=== PATIENT | male | born 1960 | race Caucasian/White ===

== ENCOUNTER 2024-11-28 19:55 | Emergency (ER) | payer OTHER ==
--- OUTSIDE RECORDS SUMMARY | 2024-11-28 19:59 | XMS REPORT | Continuity of Care Document ---
Author Name Unknown Address [address] [facility] [place] [address] [place] [address] [facility] Address [address] [facility] [place] [address] [place] [address] Care Team Providers Care Administrative Services Director Name Role Phone Cait Ramey, [facility] Primary Care Physician [phone] Campaigns, Generic Provider Attending Clinician Unavailable YU ALCAZAR Attending Clinician Unavailab ANA Dunlap Attending Clinician Unavailable ANA TOVAR Attending Clinician Unavailable Ana Tovar DO Attending Clinician [phone] Castillo WOOD Attending Clinician Unavailable Castillo Pantoja Attending Clinician [phone] YU ALCAZAR Admitting Clinician Unavailab Castillo Gann Admitting Clinician Unavailable Payers Payer Name Policy Type Policy Number Effective Date Expirati on Date Source Problems Condition Name Condition Details Condition Category Status Onset Date Resolution Date Last Treatment Date Treating Clinician Comments Source Tooth infection Tooth infection Disease Active 10-05 00:00: 00 [facility] Allergies, Adverse Reactions, Alerts Allergy Name Allergy Type Status Severity Reaction(s) Onset Date Inactive Date Treating Clinician Comments Source NO KNOWN ALLERGIE S Drug Class Active [facility] Social History Social Habit Start Date Stop Date Quantity Comments Source Sexual orientation U [facility] Exposure to SARS-CoV-2 (event) 2022-03-09 00:00:00 2022-03-19 17:40:00 Not sure [facility] Sex assigned at 1960 00:00:00 1960 00:00:00 [facility] Smoking Status Start Date Stop Date Source Tobacco smoking consumption unknown [facility] Medications Ordered Medication Name Filled Medication Name Start Date Stop Date Current Medication? Ordering Clinician Indication Dosage Frequency Signature (SIG) Comments Components Source ketorolac (TORADOL) injection 30 mg 10-10 20:15: 00 10-10 20:13 :00 No 30mg 30 mg, Slow IV Push, ONCE, 1 dose, On Thu10/10/24 at 1515, Routine [facility] diphenhydrA MINE (BENADRYL) injection 12.5 mg 10-10 19:30: 00 10-10 20:13 :00 No 12.5mg 12.5 mg, Slow IV Push, ONCE, 1 dose, On Thu10/10/24 at 1430, STAT [facility] metoclopram margi HCl (REGLAN) injection 10 mg 10-10 19:30: 00 10-10 20:12 :00 No 10mg 10 mg, Slow IV Push, ONCE, 1 dose, On Thu10/10/24 at 1430, DENNY [facility] magnesium oxide 400 mg magnesium Tab 10-10 00:00: 00 Yes [id number] 1{tbl} Take 1 tablet by mouth in the morning. [facility] Suboxone 8 mg-2 mg sublingual film 09-26 00:00: 00 Yes 1mg Kin Gallo Suboxone 4 mg-1 mg sublingual film 09-26 00:00: 00 Yes 1mg Kin Gallo meloxicam 15 mg tablet 08-15 00:00: 00 Yes 1mg Kin Gallo benztropine 1 mg tablet 08-15 00:00: 00 Yes 1mg Kin Gallo olanzapine 15 mg tablet 08-15 00:00: 00 Yes 1mg Kin Gallo amlodipine 5 mg tablet 08-04 00:00: 00 Yes 1mg Kin Gallo meloxicam 7.5 mg tablet 08-04 00:00: 00 Yes 1mg Kin Gallo lisinopril 10 mg tablet 08-04 00:00: 00 Yes 1mg Kin Gallo Flomax 0.4 mg capsule 08-04 00:00: 00 Yes 1mg Kin Gallo chlorphenir amine (CHLORTABS) 4 mg tablet 05-16 00:00: 00 Yes [id number] 4mg Take 1 tablet by mouth every 6 (six) hours as needed for Allergies. [facility] benzonatate 100 mg capsule 05-16 00:00: 00 Yes [id number] 100mg Take 1 capsule by mouth 3 (three) times daily as needed for Cough. [facility] methylPREDN ISolone (MEDROL, KARTHIK,) 4 mg tablets 05-16 00:00: 00 Yes [id number] Take by mouth SEE-INSTRU CTIONS. follow package directions [facility] Phenylephri ne-DM-Guaif enesin (TUSSIN CF COUGH-COLD) 5-10-100 mg/5 mL Liqd 05-16 00:00: 00 Yes [id number] 5mL Take 5 mL by mouth every 48 (forty-eig ht) hours. [facility] benztropine 1 mg tablet 2023-04 00:00: 00 Yes 1mg Kin Gallo olanzapine 15 mg tablet 2023-04 00:00: 00 Yes 1mg Kin Gallo amlodipine 5 mg tablet 2023-04 00:00: 00 Yes 1mg Kin Gallo meloxicam 7.5 mg tablet 2023-04 00:00: 00 Yes 1mg Kin Gallo lisinopril 10 mg tablet 2023-04 00:00: 00 Yes 1mg Kin Gallo Flomax 0.4 mg capsule 2023-04 00:00: 00 Yes 1mg Kin Gallo methocarbam oL (ROBAXIN) tablet 500 mg 2021-04 05:15: 00 03-20 04:18 :00 No 500mg 500 mg, Oral, ONCE, 1 dose, On Thu03/19/22 at 2315, Routine [facility] ibuprofen (IBU) tablet 600 mg 2021-04 04:15: 00 03-20 04:18 :00 No 600mg 600 mg, Oral, ONCE, 1 dose, On Thu03/19/22 at 2215, DENNY [facility] methocarbam oL 500 mg tablet 2021-04 00:00: 00 Yes [id number] 500mg Take 1 tablet by mouth 4 (four) times daily. [facility] naproxen (NAPROSYN) 500 mg tablet 2021-04 00:00: 00 Yes [id number] 500mg Take 1 tablet by mouth in the morning and 1 tablet in the evening. Take with meals. [facility] traMADOL (ULTRAM) 50 mg tablet 12-18 00:00: 00 Yes 50mg Take 1 Tab by mouth every 6 (six) hours as needed for Pain (scale 7-10). [facility] amoxicillin (TRIMOX) 500 mg capsule 12-18 00:00: 00 Yes 500mg Take 1 Cap by mouth 3 (three) times daily. [facility] Vital Signs Vital Name Observation Time Observation Value Comments S ource Systolic blood pressure 2024-10-10 21:00:00 150 mm[Hg] [facility] Diastolic blood pressure 2024-10-10 21:00:00 77 mm[Hg] [facility] Heart rate 2024-10-10 21:00:00 68 /min [facility] Respiratory rate 2024-10-10 21:00:00 19 /min [facility] Oxygen saturation in Arterial blood by Pulse oximetry 2024-10-10 21:00:00 99 /min [facility] Body temperature 2024-10-10 19:19:00 36.5 Cher [facility] Body height 2024-10-10 19:19:00 160 cm [facility] Body weight 2024-10-10 19:19:00 52.164 kg [facility] BMI 2024-10-10 19:19:00 20.37 kg/m2 [facility] Systolic blood pressure 2024-05-17 04:03:00 163 mm[Hg] [facility] Diastolic blood pressure 2024-05-17 04:03:00 89 mm[Hg] [facility] Heart rate 2024-05-17 04:03:00 109 /min [facility] Body temperature 2024-05-17 04:03:00 36.39 Cher [facility] Respiratory rate 2024-05-17 04:03:00 17 /min [facility] Body height 2024-05-17 04:03:00 160 cm [facility] Body weight 2024-05-17 04:03:00 58.06 kg [facility] BMI 2024-05-17 04:03:00 22.67 kg/m2 [facility] Oxygen saturation in Arterial blood by Pulse oximetry 2024-05-17 04:03:00 100 /min [facility] Systolic blood pressure 2022-03-20 04:17:55 132 mm[Hg] [facility] Diastolic blood pressure 2022-03-20 04:17:55 82 mm[Hg] [facility] Heart rate 2022-03-20 04:17:55 85 /min [facility] Respiratory rate 2022-03-20 04:17:55 16 /min [facility] Oxygen saturation in Arterial blood by Pulse oximetry 2022-03-20 04:17:55 99 /min [facility] Body temperature 2022-03-19 23:42:00 36.44 Cher [facility] Body height 2022-03-19 23:42:00 160 cm [facility] Body weight 2022-03-19 23:42:00 54.432 kg [facility] BMI 2022-03-19 23:42:00 21.26 kg/m2 [facility] BP Systolic 2024-09-26 16:54:00 152 mm[Hg] Step lizzy Gallo BP Diastolic 2024-09-26 16:54:00 83 mm[Hg] Phong sandy Gallo Weight Measured 2024-09-26 16:54:00 108.40 pounds Kin F Sabino Height Measured 2024-09-26 16:54:00 63.75 inches Kin F Sabino Body Temperature 2024-09-26 16:54:00 98.30 degrees Kin F Sabino Heart Rate 2024-09-26 16:54:00 79.00 /min Amee en F Sabino Respiratory Rate 2024-09-26 16:54:00 17.00 /min Kin F Sabino BP Systolic 2024-09-07 07:58:00 172 mm[Hg] Step hen F Sabino BP Diastolic 2024-09-07 07:58:00 107 mm[Hg] Phong phen F Sabino Weight Measured 2024-09-07 07:58:00 115.40 pounds Kin F Sabino Height Measured 2024-09-07 07:58:00 63.75 inches Kin F Sabino Body Temperature 2024-09-07 07:58:00 97.60 degrees Kin F Sabino Heart Rate 2024-09-07 07:58:00 93.00 /min Amee en F Sabino Respiratory Rate 2024-09-07 07:58:00 16.00 /min Kin F Sabino Respiratory Rate 2024-08-04 09:26:00 16.00 /min Kin F Sabino BP Systolic 2024-08-04 09:26:00 150 mm[Hg] Step hen F Sabino BP Diastolic 2024-08-04 09:26:00 88 mm[Hg] Phong phen F Sabino Weight Measured 2024-08-04 09:26:00 117.80 pounds Kin F Sabino Height Measured 2024-08-04 09:26:00 63.75 inches Kin F Sabino Body Temperature 2024-08-04 09:26:00 98.40 degrees Kin F Sabino Heart Rate 2024-08-04 09:26:00 79.00 /min Amee en F Sabion BP Systolic 2024-04-18 13:42:00 148 mm[Hg] Step hen F Sabino BP Diastolic 2024-04-18 13:42:00 92 mm[Hg] Phong phen F Sabino Weight Measured 2024-04-18 13:42:00 128.60 pounds Kin F Sabino Height Measured 2024-04-18 13:42:00 63.75 inches Kin F Sabino Body Temperature 2024-04-18 13:42:00 98.30 degrees Kin Gallo Heart Rate 2024-04-18 13:42:00 91.00 /min Amee Gallo Respiratory Rate 2024-04-18 13:42:00 17.00 /min Kin Gallo Procedures Procedure Date / Time Performed Performing Clinicia n Source LIPASE 2024-10-10 20:09:00 Yu Alcazar Un [facility] MAGNESIUM 2024-10-10 20:09:00 Yu Alcazar Un [facility] COMP. METABOLIC PANEL ([id number]) 2024-10-10 20:09:00 Yu Alcazar [facility] CBC WITH DIFF 2024-10-10 20:09:00 Yu Alcazar [facility] RAPID STREP SCREEN FOR GROUP A 2024-10-10 20:09:00 Yu Alcazar [facility] INFLUENZA A/B RSV COVID NAAT 2024-10-10 20:09:00 Yu Alcazar [facility] CT HEAD WO CONTRAST 2024-10-10 20:02:12 Trung Alcazar [facility] INFLUENZA A/B RSV COVID NAAT 2024-05-17 04:06:00 Ana Tovar [facility] XR LUMBAR SPINE 2 VW 2022-03-20 02:33:48 Castillo Wood [facility] XR SPINE THORACIC 2 VW 2022-03-20 02:33:48 Castillo Wood [facility] XR KNEE 3 VW LEFT 2022-03-20 02:33:48 Castillo Wood [facility] CT CERVICAL SPINE WO CONTRAST 2022-03-20 02:15:00 Castillo Wood [facility] CT HEAD WO CONTRAST 2022-03-20 02:15:00 Castillo Wood e [facility] CONSENT/REFUSAL FOR DIAGNOSIS AND TREATMENT 2022-03-19 23:36:31 Doctor Unassigned, [place] [facility] Encounters Start Date/Time End Date/Time Encounter Type Admission Type Attending Clinicians Care Facility Care Department Encounter ID Source 2024-10-19 00:00:00 2024-10-19 10:06:01 Letter (Out) Campaigns, Generic Provider Campaigns, Generic Provider [facility] 1..840.114 350.1.13.10 [id number] [id number] [facility] 2024-10-10 14:21:00 2024-10-10 16:19:00 Emergency X YU ALCAZAR [facility] ERT [id number] [facility] 2024-10-03 08:47:36 2024-10-03 08:47:36 Outpatient [facility] [id number] Kin Gallo 2024-09-07 07:54:19 2024-09-07 07:54:19 Outpatient [facility] [id number] Kin Gallo 2024-09-07 00:00:00 2024-09-07 00:00:00 Outpatient Visit SFA [id number] Kin Gallo 2024-08-04 09:17:30 2024-08-04 09:17:30 Outpatient [facility] [id number] Kin Gallo 2024-08-04 00:00:00 2024-08-04 00:00:00 Outpatient Visit SFA [id number] Kin Gallo 2024-05-16 22:07:00 2024-05-16 23:05:00 Emergency X ANA TOVAR PHILLIP [facility] ERT [id number] [facility] 2024-05-16 22:07:00 2024-05-16 23:05:00 Emergency Ana Tovar [facility] ..840.114 350.1.13.10 [id number] [id number] [facility] 2024-04-18 00:00:00 2024-04-18 00:00:00 Outpatient Visit [facility] [id number] Kin Gallo 2022-03-19 17:48:00 2022-03-19 22:34:00 Emergency X Castillo WOOD [facility] ERT [id number] [facility] 2022-03-19 17:48:00 2022-03-19 22:34:00 Emergency Castillo Wood Radha [facility] [id number] [id number] [id number] [id number] [facility] Results Test Description Test Time Test Comments Results Result Co mments Source [facility] (10555)2024-10-10 20:38:43* Test Item Value Reference Range Interpretation Comme nts NA (test code = 7758437671) 127 mmol/L 135-145 L K (test code = 4531136945) 3.5 mmol/L 3.5-5.0 CL (test code = 9873921647) 95 mmol/L 98-108 L CO2 TOTAL (test code = 7506846889) 27 mmol/L 23-31 AGAP (test code = 2163970798) 5 2-16 BUN (test code = 0076786473) 6 mg/dL 7-23 L GLUCOSE (test code = 6229973028) 91 mg/dL 70-110 CREATININE (test code = 2160-0) 0.72 mg/dL 0.60-1.25 TOTAL BILI (test code = 4166957679) 0.8 mg/dL 0.1-1.1 CALCIUM (test code = 4112497625) 8.3 mg/dL 8.6-10.6 L T PROTEIN (test code = 5693054351) 6.4 g/dL 6.3-8.2 ALBUMIN (test code = 5921415134) 3.8 g/dL 3.5-5.0 ALK PHOS (test code = 9455201675) 60 U/L 34-122 ALTv (test code = 1742-6) 36 U/L 5-50 AST(SGOT) (test code = 5802369124) 51 U/L 13-40 H eGFR (test code = 43026-3) 103.3 mL/min/1.73m2 CKD-EPI eGFR (2020). Assuming creatinine has been stable day-to-day for at least three months, the eGFR indicates Category G1 (>= 90 mL/min/1.73 m2) Lab Interpretation (test code = 83480-4) [facility]normal [facility] 20:38:17* Test Item Value Reference Range Interpretation Comme nts LIPASE (test code = 6228044451) 19 U/L 0-220 Lab Interpretation (test cod e = 33085-5) Normal [facility] [id number] 20:27:51* Test Item Value Reference Range Interpretation Comme nts WBC (test code = 6690-2) 7.04 4.20-10.70 RBC (test code = 789-8) 3.91 4.26-5.52 L HGB (test code = 718-7) 12.9 g/dL 12.2-16.4 HCT (test code = 4544-3) 36.6 % 38.4-49.3 L MCV (test code = 787-2) 93.6 fL 81.7-95.6 MCH (test code = 785-6) 33 pg 26.1-32.7 H MCHC (test code = 786-4) 35.2 g/dL 31.2-35.0 H RDW-SD (test code = 82810-0) 43.3 fL 38.5-51.6 RDW-CV (test code = 788-0) 12.5 % 12.1-15.4 PLT (test code = 777-3) 354 150-328 H MPV (test code = 05761-8) 8.8 fL 9.8-13.0 L NRBC/100 WBC (test code = 3379537019) 0 0.0-10.0 NRBC x10^3 (test code = 3753213115) See_Comment [Automated messa ge] The system which generated this result transmitted reference range: 10*3/?L. The reference range was not used to interpret this result as normal/abnormal. GRAN MAT (NEUT) % (test code = 770-8) 71.3 % IMM GRAN % (test code = 1659713088) 0.3 % LYMPH % (test code = 736-9) 21.9 % MONO % (test code = 5905-5) 4.7 % EOS % (test code = 713-8) 1.4 % BASO % (test code = 706-2) 0.4 % GRAN MAT x10^3(ANC) (test code = 1231856431) 5.02 10*3/uL 1.99-6.95 IMM GRAN x10^3 (test code = 7859601076) 0.00-0.06 LYMPH x10^3 (test code = 731-0) 1.54 10*3/uL 1.09-3.23 MONO x10^3 (test code = 742-7) 0.33 10*3/uL 0.36-1.02 L EOS x10^3 (test code = 711-2) 0.1 10*3/uL 0.06-0.53 BASO x10^3 (test code = 704-7) 0.03 10*3/uL 0.01-0.09 Lab Interpretation (test code = 81514-7) [facility]normal [facility] wo [id number] 20:12:00EXAM: CT HEAD WO CONTRAST HISTORY: 64 years-old Male; Provided indication: Headache, sudden, severe. TECHNIQUE: Axial CT of the head was performed and reconstructed at 5 mmintervals. Coronal and sagittal reformatted images were generated. COMPARISON: 03/19/2022 FINDINGS: The ventricles and cerebral sulci are normal in caliber and configuration.No midline shift or pathological extra-axial fluid co llection is present.The basal cisterns are unremarkable. No acute intracranial hemorrhage or significant mass effect is visualized.No parenchymal attenuation abnormality is seen. The sierra-white matterdifferentiation is preserved. The calvarium and central skull base are unremarkable. The mastoid aircells and visualized paranasal air sinuses are clear.[facility] COMPREHENSIVE METABOLIC [id number] 00:00:00* Test Item Value Reference Range Interpretation Comme nts GLUCOSE (test code = 2345-7) 76 mg/dL UREA NITROGEN (BUN) (test code = 3094-0) 16 mg/dL CREATININE (test code = 2160-0) 1.17 mg/dL EGFR (test code = 01905-7) 70 mL/min/1.73m2 BUN/CREATININE RATIO (test code = 3097-3) SEE NOTE: (calc) SODIUM (test code = 2951-2) 141 mmol/L POTASSIUM (test code = 2823-3) 4.1 mmol/L CHLORIDE (test code = 2075-0) 104 mmol/L CARBON DIOXIDE (test code = 2027-9) 26 mmol/L CALCIUM (test code = 71583-8) 9.9 mg/dL PROTEIN, TOTAL (test code = 2885-2) 7.2 g/dL ALBUMIN (test code = 1751-7) 4.4 g/dL GLOBULIN (test code = 98121-3) 2.8 g/dL(calc) ALBUMIN/GLOBULIN RATIO (test code = 1759-0) 1.6 (calc) BILIRUBIN, TOTAL (test code = 1975-2) 0.5 mg/dL ALKALINE PHOSPHATASE (test code = 6768-6) 63 U/L AST (test code = 1920-8) 26 U/L ALT (test code = 1742-6) 25 U/L Kin GalloHEMOGLOBIN [id number] 00:00:00* Test Item Value Reference Range Interpretation Comme nts HEMOGLOBIN A1c (test code = 4548-4) 5.2 % Kin GalloLIPID [id number] 00:00:00* Test Item Value Reference Range Interpretation Comme nts CHOLESTEROL, TOTAL (test cod e = 2093-3) 131 mg/dL HDL CHOLESTEROL (test code = 2085-9) 44 mg/dL TRIGLYCERIDES (test code = 2571-8) 144 mg/dL LDL-CHOLESTEROL (test code = 01207-6) 64 mg/dL(calc) CHOL/HDLC RATIO (test code = 9830-1) 3.0 (calc) NON HDL CHOLESTEROL (test co de = 42992-5) 87 mg/dL(calc) Kin GalloPSA, [id number] 00:00:00* Test Item Value Reference Range Interpretation Comme nts PSA, TOTAL (test code = 2857-1) 1.39 ng/mL Kin GalloCHLAMYDIA/N. GONORRHOEAE RNA, [id number] 00:00:00* Test Item Value Reference Range Interpretation Comme nts CHLAMYDIA TRACHOMATIS RNA, T MA, UROGENITAL (test code = 64013-9) NOT DETECTED NEISSERIA GONORRHOEAE RNA, T MA, UROGENITAL (test code = 76126-8) NOT DETECTED Kin GalloHEPATITIS PANEL, [id number] 00:00:00* Test Item Value Reference Range Interpretation Comme nts HEPATITIS A AB, TOTAL (test code = 66837-2) REACTIVE HEPATITIS B SURFACE ANTIBODY QL (test code = 52045-2) REACTIVE HEPATITIS B SURFACE ANTIGEN (test code = 5196-1) NON-REACTIVE CONFIRMATION (test code = 7905-3) DNR HEPATITIS B CORE AB TOTAL (t est code = 86216-9) NON-REACTIVE HEPATITIS C ANTIBODY (test c ode = 61512-9) REACTIVE Kin GalloHIV 1/2 ANTIGEN/ANTIBODY,FOURTH GENERATION [id number] 00:00:00* Test Item Value Reference Range Interpretation Comme debra HIV AG/AB, 4TH GEN (test cod e = 67152-7) NON-REACTIVE Kin Villanueva AustinRPR (MONITOR) W/REFL [id number] 00:00:00* Test Item Value Reference Range Interpretation Comme nts RPR (MONITOR) W/REFL TITER ( test code = 21625-8) NON-REACTIVE Kin GalloHCV RNA, QUANTITATIVE REAL TIME PCR [ADDED]2024-08-09 00:00:00* Test Item Value Reference Range Interpretation Comme debra HCV RNA, QUANTITATIVE REAL T GIGI PCR (test code = 06445-4) 397623 IU/mL HCV RNA, QUANTITATIVE REAL T GIGI PCR (test code = 47359-5) 5.70 LogIU/mL Kin GalloCOMPREHENSIVE METABOLIC [id number] 00:00:00* Test Item Value Reference Range Interpretation Comme nts GLUCOSE (test code = 2345-7) 76 mg/dL UREA NITROGEN (BUN) (test code = 3094-0) 16 mg/dL CREATININE (test code = 2160-0) 1.17 mg/dL EGFR (test code = 33796-7) 70 mL/min/1.73m2 BUN/CREATININE RATIO (test code = 3097-3) SEE NOTE: (calc) SODIUM (test code = 2951-2) 141 mmol/L POTASSIUM (test code = 2823-3) 4.1 mmol/L CHLORIDE (test code = 2075-0) 104 mmol/L CARBON DIOXIDE (test code = 2027-9) 26 mmol/L CALCIUM (test code = 10212-4) 9.9 mg/dL PROTEIN, TOTAL (test code = 2885-2) 7.2 g/dL ALBUMIN (test code = 1751-7) 4.4 g/dL GLOBULIN (test code = 11655-4) 2.8 g/dL(calc) ALBUMIN/GLOBULIN RATIO (test code = 1759-0) 1.6 (calc) BILIRUBIN, TOTAL (test code = 1975-2) 0.5 mg/dL ALKALINE PHOSPHATASE (test code = 6768-6) 63 U/L AST (test code = 1920-8) 26 U/L ALT (test code = 1742-6) 25 U/L Kin GalloHEMOGLOBIN [id number] 00:00:00* Test Item Value Reference Range Interpretation Comme nts HEMOGLOBIN A1c (test code = 4548-4) 5.2 % Kin GalloLIPID [id number] 00:00:00* Test Item Value Reference Range Interpretation Comme nts CHOLESTEROL, TOTAL (test cod e = 2093-3) 131 mg/dL HDL CHOLESTEROL (test code = 2085-9) 44 mg/dL TRIGLYCERIDES (test code = 2571-8) 144 mg/dL LDL-CHOLESTEROL (test code = 53030-8) 64 mg/dL(calc) CHOL/HDLC RATIO (test code = 9830-1) 3.0 (calc) NON HDL CHOLESTEROL (test co de = 18171-4) 87 mg/dL(calc) Kin GalloPSA, [id number] 00:00:00* Test Item Value Reference Range Interpretation Comme nts PSA, TOTAL (test code = 2857-1) 1.39 ng/mL Kin GalloCHLAMYDIA/N. GONORRHOEAE RNA, [id number] 00:00:00* Test Item Value Reference Range Interpretation Comme nts CHLAMYDIA TRACHOMATIS RNA, T MA, UROGENITAL (test code = 47056-9) NOT DETECTED NEISSERIA GONORRHOEAE RNA, T MA, UROGENITAL (test code = 86231-1) NOT DETECTED Kin GalloHEPATITIS PANEL, [id number] 00:00:00* Test Item Value Reference Range Interpretation Comme nts HEPATITIS A AB, TOTAL (test code = 74651-7) REACTIVE HEPATITIS B SURFACE ANTIBODY QL (test code = 30620-2) REACTIVE HEPATITIS B SURFACE ANTIGEN (test code = 5196-1) NON-REACTIVE CONFIRMATION (test code = 7905-3) DNR HEPATITIS B CORE AB TOTAL (t est code = 02980-3) NON-REACTIVE HEPATITIS C ANTIBODY (test c ode = 10491-0) REACTIVE Kin GalloHIV 1/2 ANTIGEN/ANTIBODY,FOURTH GENERATION [id number] 00:00:00* Test Item Value Reference Range Interpretation Comme debra HIV AG/AB, 4TH GEN (test cod e = 24658-2) NON-REACTIVE Kin Villanueva AustinRPR (MONITOR) W/REFL [id number] 00:00:00* Test Item Value Reference Range Interpretation Comme nts RPR (MONITOR) W/REFL TITER ( test code = 32624-6) NON-REACTIVE Kin GalloHCV RNA, QUANTITATIVE REAL TIME PCR [ADDED]2024-08-09 00:00:00* Test Item Value Reference Range Interpretation Comme debra HCV RNA, QUANTITATIVE REAL T GIGI PCR (test code = 65587-3) 248953 IU/mL HCV RNA, QUANTITATIVE REAL T GIGI PCR (test code = 97627-5) 5.70 LogIU/mL Kin GalloPSA, [id number] 04:20:25* Test Item Value Reference Range Interpretation Comme nts PSA, TOTAL (test code = 2606) 1.19 NG/ML <=4.00 NOTE: Methodolog y is Edwin Raul Electrochemiluminescence Immunoassay traceable to WHO reference standard 96/760. LIPID [id number] 04:03:34* Test Item Value Reference Range Interpretation Comme nts CHOLESTEROL (test code = 2210) 128 MG/DL <200 TRIGLYCERIDES (test code = 2232) 155 MG/DL <150 H HDL CHOLESTEROL (test code = 2220) 40 MG/DL >39 CALC LDL CHOL (test code = 2237) 65 MG/DL <100 NOTE: CALCULATED LDL IS BASED ON NESTOR-TORRES METHOD WHICHINCLUDES ADJUSTABLE TRIGLYCERIDE:VLDL CHOLESTEROL RATIO.THIS FACTOR VARIES BY MEASURED TRIGLYCERIDE AND NON-HDLCHOLESTEROL CONCENTRATIONS WITH INCREASED CALCULATED LDL SEENIN HIGHER TRIGLYCERIDE OR LOWER NON-HDL SPECIMENS. FOR MOREINFORMATION, SEE CLIENT ANNOUNCEMENT AT [email or web address] RATIO LDL/HDL (test code = 223) 1.63 RATIO <3.55 COMPREHENSIVE METABOLIC [id number] 04:03:34* Test Item Value Reference Range Interpretation Comme nts GLUCOSE (test code = 221) 96 MG/DL 70-99 BUN (test code = 2207) 13 MG/DL 8-23 CREATININE (test code = 221) 1.19 MG/DL 0.80-1.40 eGFR (2020 CKD-EPI) (test co de = 04277) 69 ML/MIN/1.73 >60 CALC BUN/CREAT (test code = 2235) 11 RATIO 6-28 SODIUM (test code = 223) 142 MEQ/L 133-146 POTASSIUM (test code = 2228) 4.2 MEQ/L 3.5-5.4 CHLORIDE (test code = 2215) 105 MEQ/L 95-107 CARBON DIOXIDE (test code = 2206) 25 MEQ/L 19-31 CALCIUM (test code = 2209) 9.7 MG/DL 8.5-10.5 PROTEIN, TOTAL (test code = 2229) 7.3 G/DL 6.1-8.3 ALBUMIN (test code = 2201) 4.5 G/DL 3.5-5.2 CALC GLOBULIN (test code = 2240) 2.8 G/DL 1.9-3.7 CALC A/G RATIO (test code = 2234) 1.6 RATIO 1.0-2.6 BILIRUBIN, TOTAL (test code = 220) 0.4 MG/DL <=1.2 ALKALINE PHOSPHATASE (test code = 2204) 98 U/L 40-123 AST (test code = 2218) 34 U/L 9-50 ALT (test code = 2219) 55 U/L 5-50 H MICROSCOPIC URINALYSIS,RFLX [id number] 03:09:02* Test Item Value Reference Range Interpretation Comme nts WHITE BLOOD CELLS (test code = 1513) 0-5 /HPF 0-5 RED BLOOD CELLS (test code = 1514) 0-2 /HPF 0-2 EPITHELIAL CELLS (test code = 90644) 0-5 /HPF 0-5 BACTERIA (test code = 1515) NONE SEEN NONE SEEN CASTS, HYALINE (test code = 1517) NONE SEEN NONE-TRACE UNLESS OTHERWISE INDICATED, ALL TESTING PERFORMED AT [facility] [address] [place] [address] DIRECT MARKETING COORDINATOR: LAUREN BLAS M.D. CLIA NUMBER [id number] [facility] [place]. [id number] HEMOGLOBIN [id number] 02:40:42* Test Item Value Reference Range Interpretation Comme nts HEMOGLOBIN A1c (test code = 60207) 5.0 % 4.2-5.6 HEMOGLOBIN [id number] 00:00:00* Test Item Value Reference Range Interpretation Comme nts HEMOGLOBIN A1c (test code = 79086) 5.0 % Kin Villanueva RalstonLIPID [id number] 00:00:00* Test Item Value Reference Range Interpretation Comme nts CHOLESTEROL (test code = 2210) 128 MG/DL TRIGLYCERIDES (test code = 2232) 155 MG/DL HDL CHOLESTEROL (test code = 2220) 40 MG/DL CALC LDL CHOL (test code = 2237) 65 MG/DL RISK RATIO LDL/HDL (test cod e = 2238) 1.63 RATIO Kin GalloCOMPREHENSIVE METABOLIC [id number] 00:00:00* Test Item Value Reference Range Interpretation Comme nts GLUCOSE (test code = 2217) 96 MG/DL BUN (test code = 2208) 13 MG/DL CREATININE (test code = 2214) 1.19 MG/DL eGFR (2020 CKD-EPI) (test co de = 66647) 69 ML/MIN/1.73 CALC BUN/CREAT (test code = 2235) 11 RATIO SODIUM (test code = 2231) 142 MEQ/L POTASSIUM (test code = 2228) 4.2 MEQ/L CHLORIDE (test code = 2215) 105 MEQ/L CARBON DIOXIDE (test code = 2206) 25 MEQ/L CALCIUM (test code = 2209) 9.7 MG/DL PROTEIN, TOTAL (test code = 2229) 7.3 G/DL ALBUMIN (test code = 2201) 4.5 G/DL CALC GLOBULIN (test code = 2240) 2.8 G/DL CALC A/G RATIO (test code = 2234) 1.6 RATIO BILIRUBIN, TOTAL (test code = 2207) 0.4 MG/DL ALKALINE PHOSPHATASE (test code = 2204) 98 U/L AST (test code = 2218) 34 U/L ALT (test code = 2219) 55 U/L Kin GalloPSA, [id number] 00:00:00* Test Item Value Reference Range Interpretation Comme nts PSA, TOTAL (test code = 2606) 1.19 NG/ML Kin GalloMICROSCOPIC URINALYSIS, REFLEX [id number] 00:00:00* Test Item Value Reference Range Interpretation Comme nts WHITE BLOOD CELLS (test code = 1513) 0-5 /HPF RED BLOOD CELLS (test code = 1514) 0-2 /HPF EPITHELIAL CELLS (test code = 11265) 0-5 /HPF BACTERIA (test code = 1515) NONE SEEN CASTS, HYALINE (test code = 1517) NONE SEEN Kin GalloHEMOGLOBIN [id number] 00:00:00* Test Item Value Reference Range Interpretation Comme nts HEMOGLOBIN A1c (test code = 52504) 5.0 % Kin GalloLIPID [id number] 00:00:00* Test Item Value Reference Range Interpretation Comme nts CHOLESTEROL (test code = 2210) 128 MG/DL TRIGLYCERIDES (test code = 2232) 155 MG/DL HDL CHOLESTEROL (test code = 2220) 40 MG/DL CALC LDL CHOL (test code = 2237) 65 MG/DL RISK RATIO LDL/HDL (test cod e = 2238) 1.63 RATIO Kin GalloCOMPREHENSIVE METABOLIC [id number] 00:00:00* Test Item Value Reference Range Interpretation Comme nts GLUCOSE (test code = 2217) 96 MG/DL BUN (test code = 2208) 13 MG/DL CREATININE (test code = 2214) 1.19 MG/DL eGFR (2020 CKD-EPI) (test co de = 32227) 69 ML/MIN/1.73 CALC BUN/CREAT (test code = 2235) 11 RATIO SODIUM (test code = 2231) 142 MEQ/L POTASSIUM (test code = 2228) 4.2 MEQ/L CHLORIDE (test code = 2215) 105 MEQ/L CARBON DIOXIDE (test code = 2206) 25 MEQ/L CALCIUM (test code = 2209) 9.7 MG/DL PROTEIN, TOTAL (test code = 2229) 7.3 G/DL ALBUMIN (test code = 2201) 4.5 G/DL CALC GLOBULIN (test code = 2240) 2.8 G/DL CALC A/G RATIO (test code = 2234) 1.6 RATIO BILIRUBIN, TOTAL (test code = 2207) 0.4 MG/DL ALKALINE PHOSPHATASE (test code = 2204) 98 U/L AST (test code = 2218) 34 U/L ALT (test code = 2219) 55 U/L Kin GalloPSA, [id number] 00:00:00* Test Item Value Reference Range Interpretation Comme nts PSA, TOTAL (test code = 2606) 1.19 NG/ML Kin GalloMICROSCOPIC URINALYSIS, REFLEX [id number] 00:00:00* Test Item Value Reference Range Interpretation Comme nts WHITE BLOOD CELLS (test code = 1513) 0-5 /HPF RED BLOOD CELLS (test code = 1514) 0-2 /HPF EPITHELIAL CELLS (test code = 72571) 0-5 /HPF BACTERIA (test code = 1515) NONE SEEN CASTS, HYALINE (test code = 1517) NONE SEEN Kin GalloHEMOGLOBIN [id number] 00:00:00* Test Item Value Reference Range Interpretation Comme nts HEMOGLOBIN A1c (test code = 66233) 5.0 % Kin GalloLIPID [id number] 00:00:00* Test Item Value Reference Range Interpretation Comme nts CHOLESTEROL (test code = 2210) 128 MG/DL TRIGLYCERIDES (test code = 2232) 155 MG/DL HDL CHOLESTEROL (test code = 2220) 40 MG/DL CALC LDL CHOL (test code = 2237) 65 MG/DL RISK RATIO LDL/HDL (test cod e = 2238) 1.63 RATIO Kin GalloCOMPREHENSIVE METABOLIC [id number] 00:00:00* Test Item Value Reference Range Interpretation Comme nts GLUCOSE (test code = 2217) 96 MG/DL BUN (test code = 2208) 13 MG/DL CREATININE (test code = 2214) 1.19 MG/DL eGFR (2020 CKD-EPI) (test co de = 85229) 69 ML/MIN/1.73 CALC BUN/CREAT (test code = 2235) 11 RATIO SODIUM (test code = 2231) 142 MEQ/L POTASSIUM (test code = 2228) 4.2 MEQ/L CHLORIDE (test code = 2215) 105 MEQ/L CARBON DIOXIDE (test code = 2206) 25 MEQ/L CALCIUM (test code = 2209) 9.7 MG/DL PROTEIN, TOTAL (test code = 2229) 7.3 G/DL ALBUMIN (test code = 2201) 4.5 G/DL CALC GLOBULIN (test code = 2240) 2.8 G/DL CALC A/G RATIO (test code = 2234) 1.6 RATIO BILIRUBIN, TOTAL (test code = 2207) 0.4 MG/DL ALKALINE PHOSPHATASE (test code = 2204) 98 U/L AST (test code = 2218) 34 U/L ALT (test code = 2219) 55 U/L Kin F SabinoPSA, [id number] 00:00:00* Test Item Value Reference Range Interpretation Comme nts PSA, TOTAL (test code = 2606) 1.19 NG/ML Kin Villanueva SabinoMICROSCOPIC URINALYSIS, REFLEX [id number] 00:00:00* Test Item Value Reference Range Interpretation Comme nts WHITE BLOOD CELLS (test code = 1513) 0-5 /HPF RED BLOOD CELLS (test code = 1514) 0-2 /HPF EPITHELIAL CELLS (test code = 32522) 0-5 /HPF BACTERIA (test code = 1515) NONE SEEN CASTS, HYALINE (test code = 1517) NONE SEEN Kin Gallo Notes Date/Time Note Provider Source 2024-10-10 14:19:08 Patient arrived ambulatory c/o working in the yard when he started getting a headache and vomiting starting approximately about 1 hour ago. Dianelys Jiang [facility]:00:00 Kin [facility]2025-01-27 22:32:50 Pt given printed and verbal discharge instructions regarding flu like sx, encouraged hydration, Prescriptions provided Pt verbalized understanding of instructions, pt awake alert oriented, resp reg unlabored, skin w/d, color appropriate for race, moves all ext well,pt encouraged to follow up with pcp Advised to seek medical attention for new/prolonged/worsening of symptoms, No adverse reaction to meds given in ER noted upon discharge Awake, alert oriented, resp reg unlabored, skin w/d, pt leaving amb with steady gait, in no apparent distress, [facility]2025-01-27 22:02:32 Pt ambulatory to triage with CC of congestion, drainage, N/V, and coughing for the past few days. Pt denies taking anything for Sx [id number] 00:00:00 Kin [facility]
--- NOTE | 2024-11-28 21:05 | RAD REPORT ---
EXAM: Chest Single View HISTORY: 64 years Male Cough;Dyspnea COMPARISON: 11/10/2024 FINDINGS: LUNGS/PLEURA: The lungs are clear. No pleural effusions or pneumothorax. No pulmonary edema. CARDIAC/MEDIASTINUM: The cardiac silhouette is within normal limits. UPPER ABDOMEN: No significant abnormality. BONES: No acute abnormality. LINES/TUBES/OTHER: N/A IMPRESSION: No evidence of acute cardiopulmonary disease.
[2024-11-28] MEDS ORDERED: ALBUTEROL 2.5 MG/3 ML NEB SOL ONE (21:08)
[2024-11-28] MEDS ORDERED: METHYLPREDNISOLONE 125 MG INJ ONE (21:08)
[2024-11-28] MEDS ORDERED: IPRATROPIUM BROM 0.5MG/2.5ML ONE (21:08)
[2024-11-28 21:49] LABS: METHAMPHETAM NEGATIVE (NEGATIVE); THC Cannibis NEGATIVE (NEGATIVE)
[2024-11-28 22:13] LABS: Absolute Lymphocytes (CBC) 1.4 K/uL (0.7-4.9); Hematocrit 45.7 % (39.6-49.0); Hemoglobin 15.5 g/dL (13.6-17.9); MCH 31.9 pg (27.0-35.0); MCHC 34.0 g/dL (32.0-36.0); MCV 93.9 fL (80-100); MPV 7.6 fL (7.6-11.3); Nucleated RBC Absolute Count 0.0 (0-0); Nucleated Red Blood Cells % 0.0 % (0-0); RBC Red Blood Cell Count 4.86 M/uL (4.33-5.43); White Blood Count 7.40 thou/uL (4.3-10.9)
[2024-11-28 22:14] LABS: Influenza A Ag Negative; Influenza B Ag Negative; SARS-CoV-2 Antigen Rapid Res Negative (Negative)
[2024-11-28 22:29] LABS: PT Prothrombin Time 13.8 SECONDS (10-13.0); PTT, Activated Partial Thromb 30.2 SECONDS (27.2-37.4); Protime INR 1.23
[2024-11-28] MEDS ORDERED: NA CHLORIDE 0.9% 1,000 ML ONE (22:32)
[2024-11-28 22:33] LABS: ALT/SGPT 39 U/L (16-61); AST/SGOT 21 U/L (15-37); Albumin 3.9 g/dL (3.4-5.0); Albumin/Globulin Ratio 1.1 (1.1-1.8); Alkaline Phosphatase 82 U/L (45-117); Anion Gap 9.4 mEq/L (5.0-15.0); BUN Blood Urea Nitrogen 11 mg/dL (7-18); Bilirubin Indirect, Calculated 0.5 mg/dL (0.2-0.8); Globulin 3.6 g/dL (2.3-3.5); Glucose Level 168 mg/dL (74-106); Potassium 3.4 mEq/L (3.5-5.1)
[2024-11-29] MEDS ORDERED: CEFTRIAXONE 1000 MG/VIAL ONE (00:25)
[2024-11-29] MEDS ORDERED: NA CHLORIDE 0.9% 100 ML ONE (00:25)
--- NOTE | 2024-11-29 01:48 | EDPHYS ---
Physician Documentation [facility] Name: Gaetano Ch Age: 64 yrs Sex: Male : 1960 Arrival Date: 11/28/2024 Time: 19:55 Bed 18 Private MD: ED Physician Robbi Ames HPI: 11/28 19:59 This 64 yrs old Other Race Male presents to ER via Unassigned with complaints of sp4 Shortness Of Breath. 11/29 00:49 Pt is a 64 year old male who presents for shortness of breath that started 2 days ago. kb States he was recently diagnosed with COPD and his inhaler wasn't helping. Also reports suicidal ideations over the last few weeks due to decreased quality of life. States he does not have a plan, has never been suicidal before and has always loved life. . Historical: - Allergies: 11/28 20:11 No Known Allergies; cp4 - PMHx: 20:11 Hypertensive disorder; Chronic obstructive lung disease; cp4 20:11 Anxiety; Depressive disorder; cp4 - PSHx: 20:11 L leg and facial reconstruction; cp4 - Immunization history:: Adult Immunizations not up to date. - Infectious Disease History:: Denies. - Social history:: Smoking status: Patient reports the use of cigarette tobacco products, smokes one-half pack cigarettes per day. ROS: 22:52 Constitutional: As per HPI kb Exam: 22:52 Constitutional: This is a well developed, well nourished patient who is awake, alert, kb and in no acute distress. Head/Face: Normocephalic, atraumatic. ENT: Moist Mucous membranes Cardiovascular: Regular rate Abdomen/GI: Soft, non-tender. No distention Skin: Warm, dry with normal turgor. Normal color. MS/ Extremity: Pulses equal, no cyanosis. Neurovascular intact. Full, normal range of motion. Neuro: Awake and alert, GCS 15, oriented to person, place, time, and situation. 22:52 ECG was reviewed by the Attending Physician. 22:52 Respiratory: the patient does not display signs of respiratory distress, Respirations: normal, Breath sounds: decreased breath sounds, that are mild, Vital Signs: 20:09 BP 171 / 84; Pulse 123; Resp 18; Temp 97.8; Pulse Ox 97% ; Weight 49.9 kg; Height 5 ft. cp4 3 in. ; Pain 0/10; 11/29 00:18 BP 130 / 72 Supine; Pulse 77; Temp 97.9; Pulse Ox 97% on R/A; sa1 07:22 BP 138 / 75 Supine; Pulse 87; Resp 18 S; Temp 98.1(O); Pulse Ox 96% on R/A; iw 09:19 BP 130 / 76; Pulse 76; Temp 97.9; Pulse Ox 99% ; ty 11/28 20:09 Body Mass Index 19.49 (49.90 kg, 160.02 cm) cp4 11/28 20:09 Pain Scale: Adult cp4 MDM: 11/28 19:58 Medical Screening Exam initiated kb 11/29 00:42 Differential diagnosis: Chronic Obstructive Pulmonary Disease pneumonia, pulmonary kb edema, depression, suicidal ideations, acute stress reaction. Data reviewed: vital signs, nurses notes. Consideration of Admission/Observation Escalation of care including admission/observation considered. Management of patient was discussed with the following: Hospitalist: Dr Higginbotham, requests [facility] screening prior to admission. [facility] has been called, awaiting their evaluation. 01:41 ED course: Pt told the [facility] screener that he did have a plan in how he would harm kb himself. [facility] screener recommends inpatient treatment. Vital signs improved, pt does not require oxygen, CXR wnl. Medically cleared. . 01:47 Consideration of Admission/Observation pt will be transferred for inpatient psychiatric kb treatment on voluntary basis. Counseling: I had a detailed discussion with the patient and/or guardian regarding the historical points, exam findings, and any diagnostic results supporting the discharge/admit diagnosis, lab results, radiology results, the need to transfer to another facility, [facility] does not immediately have the required specialist. 01:48 Transition of care: After a detail discussion of the patient's case, care is kb transferred to Robbi Ames MD. 11/28 20:05 Order name: Acetaminophen; Complete Time: 22:35 kb 11/28 20:05 Order name: Basic Metabolic Panel; Complete Time: 22:35 kb 11/28 20:05 Order name: CBC with Diff; Complete Time: 22:16 kb 11/28 20:05 Order name: ETOH Level; Complete Time: 22:35 kb 11/28 20:05 Order name: Hepatic Function; Complete Time: 22:35 kb 11/28 20:05 Order name: PT-INR; Complete Time: 22:35 kb 11/28 20:05 Order name: Ptt, Activated; Complete Time: 22:35 kb 11/28 20:05 Order name: Salicylate; Complete Time: 22:28 kb 11/28 20:05 Order name: Urine Drug Screen; Complete Time: 21:50 kb 11/28 20:05 Order name: COVID-19 Ag + Flu A+B Ag; Complete Time: 22:16 kb 11/28 20:11 Order name: Blood Culture Adult (2) kb 11/28 20:11 Order name: Lactate w/ 2H reflex if indic.; Complete Time: 22:35 kb 11/28 22:35 Order name: Ghost Lactate-NO COLLECT Timer; Complete Time: 00:33 EDMS 11/29 02:09 Order name: Lactate Sepsis 2 HR Follow-up; Complete Time: 03:22 EDMS 11/29 03:22 Order name: Lactate w/ 2H reflex if indic.: collect at 5 AM; Complete Time: 07:10 sp4 11/29 05:27 Order name: Ghost Lactate-NO COLLECT Timer EDMS 11/28 20:05 Order name: Chest Single View XRAY; Complete Time: 21:14 kb 11/28 20:05 Order name: IV Saline Lock; Complete Time: 21:58 kb 11/28 20:05 Order name: Labs collected and sent; Complete Time: 21:58 kb 11/28 20:05 Order name: Suicide Screening ([place]); Complete Time: 22:37 kb 11/28 23:37 Order name: Vital Signs; Complete Time: 00:23 kb 11/29 00:33 Order name: Misc. Order: please draw repeat lactate; Complete Time: 01:42 kb EC/11 22:52 Rate is 81 beats/min. Rhythm is regular. QRS Dixon is Normal. MS interval is normal at kb 140 msec. QRS interval is normal at 84 msec. QT interval is normal at 469 msec. Administered Medications: 21:33 Drug: Albuterol Inhalation 2.5 mg Inhalation once Route: Inhalation; tb4 22:36 Follow up: Response: No adverse reaction tb4 21:33 Drug: Ipratropium Inhalation Aerosol 0.5 mg Inhalation once Route: Inhalation; tb4 22:37 Follow up: Response: No adverse reaction tb4 21:58 Drug: MethylPrednisoLONE IVP 125 mg IVP once Route: IVP; Site: right antecubital; tb4 22:37 Follow up: Response: No adverse reaction tb4 22:46 Drug: NS 0.9% IV 1000 ml IV at 1000 ml once; to be given as a bolus over 60 minutes tb4 Route: IV; Rate: 1000 ml; Site: right antecubital; 11/29 00:23 Follow up: Response: No adverse reaction; IV Status: Completed infusion tb4 01:30 Drug: Rocephin IV 1 grams IV at calculated rate once; Given slow IV push per pharmacy tb4 instructions Route: IV; Rate: calculated rate; Site: right antecubital; 02:06 Follow up: Response: No adverse reaction; IV Status: Completed infusion tb4 02:32 Drug: NS 0.9% IV 1000 ml IV at 1000 ml once; to be given as a bolus over 60 minutes tb4 Route: IV; Rate: 1000 ml; Site: left antecubital; 04:33 Follow up: Response: No adverse reaction; IV Status: Completed infusion tb4 04:33 Drug: NS 0.9% IV 1000 ml IV at 125 ml/hr once; to be given at 125 ml/hour Route: IV; tb4 Rate: 125 ml/hr; Site: left antecubital; 04:59 Drug: Ketorolac PO 10 mg PO once Route: PO; tb4 04:59 Drug: Methocarbamol PO 1500 mg PO once Route: PO; tb4 Disposition: 04:06 Co-signature as Attending Physician, Robbi Ames MD I agree with the assessment sp4 and plan of care. I reviewed the patient's care provided by Advanced Practice Provider \T\ agree w/ the diagnosis \T\ care plan. I personally saw the pt \T\ performed a substantive portion of the visit, incldng all aspects of the (History/Exam/Medical Decision Making). Disposition Summary: 11/29/24 01:48 Transfer Ordered Notes: Transfer Location: [facility] Facility kb Reason: Higher level of care kb Condition: Stable kb Problem: new kb Symptoms: are unchanged kb Accepting Physician: (11/29/24 09:19) iw Diagnosis - Suicidal ideations kb - COPD/ Chronic obstructive pulmonary disease with (acute) exacerbation sp4 - Cocaine abuse, acute depression with suicidal ideation sp4 Forms: - Medication Reconciliation Form kb - SBAR form kb Signatures: Dispatcher [employer] EDBailee Suarez, SUPPORT SERVICE TECH-C SUPPORT SERVICE TECH-Linette Bolton, RN RN iw Jovany, Reagan RN RN [id number] Robbi Ames MD MD sp4 Jane Hernandez Terri RN RN tb4 Corrections: (The following items were deleted from the chart) 01:49 00:42 Differential diagnosis: Chronic Obstructive Pulmonary Disease pneumonia, kb pulmonary edema, kb 07:11 01:48 Dr martinez sp4 09:19 07:11 spTamara bower
--- NOTE | 2024-11-29 01:48 | ER ---
Nurse's Notes [facility] Name: Gaetano Ch Age: 64 yrs Sex: Male : 1960 Arrival Date: 11/28/2024 Time: 19:55 Bed 18 Private MD: Diagnosis: Suicidal ideations;COPD/ Chronic obstructive pulmonary disease with (acute) exacerbation;Cocaine abuse, acute depression with suicidal ideation Presentation: 11/28 20:09 Chief complaint: Patient states: reports shortness of breath for the last couple of cp4 weeks and suicidal thoughts. States his quality of life is going down and has been having thoughts of suicide for several weeks. Patient does not have a plan. Coronavirus screen: Client denies travel out of the [place] in the last 14 days. At this time, the client does not indicate any symptoms associated with coronavirus-19. Ebola Screen: Patient negative for fever greater than or equal to 101.5 degrees Fahrenheit, and additional compatible Ebola Virus Disease symptoms Patient denies exposure to infectious person. Patient denies travel to an Ebola-affected area in the 21 days before illness onset. No symptoms or risks identified at this time. Initial Sepsis Screen: Does the patient meet any 2 criteria? HR > 90 bpm. No. Patient's initial sepsis screen is negative. Does the patient have a suspected source of infection? No. Patient's initial sepsis screen is negative. Risk Assessment: Do you want to hurt yourself or someone else? Patient reports desire/thoughts of hurting themselves or someone else. Provider notified. Onset of symptoms is unknown. 20:09 Method Of Arrival: Ambulatory cp4 20:09 Acuity: AVA 2 cp4 Triage Assessment: 20:11 General: Appears in no apparent distress. uncomfortable, unkempt, Behavior is calm, cp4 cooperative, appropriate for age. Pain: Denies pain. Respiratory: Reports shortness of breath at rest Onset: The symptoms/episode began/occurred at an unknown time. the patient has mild shortness of breath. Historical: - Allergies: 20:11 No Known Allergies; cp4 - PMHx: 20:11 Hypertensive disorder; Chronic obstructive lung disease; cp4 20:11 Anxiety; Depressive disorder; cp4 - PSHx: 20:11 L leg and facial reconstruction; cp4 - Immunization history:: Adult Immunizations not up to date. - Infectious Disease History:: Denies. - Social history:: Smoking status: Patient reports the use of cigarette tobacco products, smokes one-half pack cigarettes per day. Screenin:58 [facility] ED Fall Risk Assessment (Adult) History of falling in the last 3 months, tb4 including since admission No falls in past 3 months (0 pts) Confusion or Disorientation No (0 pts) Intoxicated or Sedated No (0 pts) Impaired Gait No (0 pts) Mobility Assist Device Used No (0 pt) Altered Elimination No (0 pt) Score/Fall Risk Level 0 - 2 = Low Risk Oriented to surroundings, Maintained a safe environment. Abuse screen: Denies threats or abuse. Nutritional screening: No deficits noted. Tuberculosis screening: No symptoms or risk factors identified. Assessment: 20:51 Reassessment: Patient is alert, oriented x 3, equal unlabored respirations, skin tb4 warm/dry/pink. See triage note Patient denies pain at this time. General: Appears in no apparent distress. comfortable, Behavior is calm, cooperative, flat. Pain: Denies pain. Neuro: No deficits noted. Level of Consciousness is awake, alert, obeys commands, Oriented to person, place, time, situation, Director Of [employer] are equal bilaterally Moves all extremities. Full function Gait is steady, Speech is normal, Facial symmetry appears normal. Cardiovascular: Reports shortness of breath, Denies chest pain, Rhythm is regular. Respiratory: Airway is patent Trachea midline Respiratory effort is even, unlabored, Breath sounds are clear bilaterally. GI: No deficits noted. No signs and/or symptoms were reported involving the gastrointestinal system. : No deficits noted. No signs and/or symptoms were reported regarding the genitourinary system. EENT: No deficits noted. No signs and/or symptoms were reported regarding the EENT system. Derm: No signs and/or symptoms reported regarding the dermatologic system. Skin is intact, with poor turgor Skin is moist, Skin is pink, warm \\T\\ dry. Skin temperature is warm. Musculoskeletal: Circulation, motion, and sensation intact. Capillary refill < 3 seconds, is brisk, in bilateral fingers. Range of motion:. 11/29 01:21 Reassessment: [employer] visiting with patient at this time. tb4 08:16 Reassessment: nurse to nurse given to Rigo looney [place] /behavioral. iw Psych: 11/28 22:32 [place] Suicide Severity Screening: In the past month, have you wished you were tb4 or wished you could go to sleep and not wake up? Patient responds "No." "In the past month, have you actually had any thoughts of killing yourself?" Patient responds "no." "In your lifetime, have you ever done anything, started to do anything, or prepared to do anything to end your life?" Patient responds "no." Patient stated he has never had thoughts of killing himself. Subjective: Patient's mood is sad, hopeless, Delusions are denied, Hallucinations are denied Having thoughts of suicide. Denies suicidal plan. Objective: Patient is cooperative, Speech is normal, Affect is flat. Interventions: Removed personal items and placed in bag. Patient placed in hospital gown. Searched person for dangerous items. Urine collected and sent for urine drug test. Belonging list filled out. Patient reassessed during use of restraints. Patient is physically safe. Patient's respirations are even and unlabored. Patient nutrition and hydration needs will continue to be monitored and addressed. Patient assessed for signs of distress. Patient remains reasonably comfortable at this time. Safety Checks: Personal items have been removed. Pt has been placed in a hallway bed/chair. No visitors are present at this time. Patient stated he used all drugs in the pass, but has been clean for over one year. Consultation:. Commitment: Patient will be a voluntary commitment. Vital Signs: 20:09 BP 171 / 84; Pulse 123; Resp 18; Temp 97.8; Pulse Ox 97% ; Weight 49.9 kg; Height 5 ft. cp4 3 in. ; Pain 0/10; 08 00:18 BP 130 / 72 Supine; Pulse 77; Temp 97.9; Pulse Ox 97% on R/A; sa1 07:22 BP 138 / 75 Supine; Pulse 87; Resp 18 S; Temp 98.1(O); Pulse Ox 96% on R/A; iw 09:19 BP 130 / 76; Pulse 76; Temp 97.9; Pulse Ox 99% ; ty 11/28 20:09 Body Mass Index 19.49 (49.90 kg, 160.02 cm) cp4 11/28 20:09 Pain Scale: Adult cp4 ED Course: 11/28 19:57 Patient arrived in ED. gm2 19:58 Bailee Abad FNP-C is PHCP. kb 19:58 Robbi Ames MD is Attending Physician. kb 20:00 Bailee Abad FNP-C is PHCP. kb 20:11 Triage completed. cp4 20:11 Arm band placed on right wrist. Patient placed in waiting room. cp4 20:45 Chest Single View XRAY In Process Unspecified. EDMS 20:58 Patient has correct armband on for positive identification. Bed in low position. Door tb4 closed. Warm blanket given. Diet: Patient given a regular meal tray. 20:58 No provider procedures requiring assistance completed. tb4 21:58 Inserted saline lock: 20 gauge in right antecubital area, using aseptic technique. tb4 Blood collected. Flushed with 10 mL NS. 22:00 Initial lab(s) drawn, by me, sent to lab. First set of blood cultures drawn by me, tb4 Second set of blood cultures drawn by me, Urine collected: clean catch specimen, clear, EKG done, by ED staff, COVID swab sent to lab. 11/29 02:27 Inserted saline lock: 18 gauge in left forearm, using aseptic technique. Flushed with ts3 10 mL NS. 04:59 Lactate w/ 2H reflex if indic.: collect at 5 AM Sent. tb4 07:[address] [facility]. bd 07:49 faxed chart to [facility]. bd 08:12 Linette Lainez, RN is Primary Nurse. iw 08:48 pt accepted in transfer to [facility] by dr Morrow admin approval given by vasile Sierra. 09:18 Provided Education on: . iw 09:19 IV discontinued, intact, bleeding controlled, No redness/swelling at site. Pressure iw dressing applied. Administered Medications: 11/28 21:33 Drug: Albuterol Inhalation 2.5 mg Inhalation once Route: Inhalation; tb4 22:36 Follow up: Response: No adverse reaction tb4 21:33 Drug: Ipratropium Inhalation Aerosol 0.5 mg Inhalation once Route: Inhalation; tb4 22:37 Follow up: Response: No adverse reaction tb4 21:58 Drug: MethylPrednisoLONE IVP 125 mg IVP once Route: IVP; Site: right antecubital; tb4 22:37 Follow up: Response: No adverse reaction tb4 22:46 Drug: NS 0.9% IV 1000 ml IV at 1000 ml once; to be given as a bolus over 60 minutes tb4 Route: IV; Rate: 1000 ml; Site: right antecubital; 11/29 00:23 Follow up: Response: No adverse reaction; IV Status: Completed infusion tb4 01:30 Drug: Rocephin IV 1 grams IV at calculated rate once; Given slow IV push per pharmacy tb4 instructions Route: IV; Rate: calculated rate; Site: right antecubital; 02:06 Follow up: Response: No adverse reaction; IV Status: Completed infusion tb4 02:32 Drug: NS 0.9% IV 1000 ml IV at 1000 ml once; to be given as a bolus over 60 minutes tb4 Route: IV; Rate: 1000 ml; Site: left antecubital; 04:33 Follow up: Response: No adverse reaction; IV Status: Completed infusion tb4 04:33 Drug: NS 0.9% IV 1000 ml IV at 125 ml/hr once; to be given at 125 ml/hour Route: IV; tb4 Rate: 125 ml/hr; Site: left antecubital; 04:59 Drug: Ketorolac PO 10 mg PO once Route: PO; tb4 04:59 Drug: Methocarbamol PO 1500 mg PO once Route: PO; tb4 Medication: 11/28 20:58 VIS not applicable for this client. tb4 Outcome: 11/29 01:48 ER care complete, transfer ordered by MD. martinez 09:18 Transferred by ground EMS by private ambulance EMS . Transfer form completed. X-rays iw sent w/ patient. Note: [facility] 09:19 Patient left the ED. iw Signatures: Dispatcher [employer] EDMS Bailee Abad, COMMUNICATION LECTURER-C COMMUNICATION LECTURER-Ckb Catina Vance Irene, RN RN iw Jane Hernandez Ginger gm2 Toney Bo Sultan sa1 Prema Hannon oh1 Yessy Easley RN RN tb4 Vicky Pace ts3 Corrections: (The following items were deleted from the chart) 07:29 00:18 BP 130 / 72 Supine; Pulse 77bpm; Pulse Ox 97% RA; Temp 97.9F Oral; oh1 sa1 07:29 07:22 BP 135 / 75 Supine; Pulse 87bpm; Pulse Ox 96% RA; Temp 98.1F Oral; oh1 sa1 08:14 07:22 BP 138 / 75 Supine; Pulse 87bpm; Pulse Ox 96% RA; Temp 98.1F Oral; sa1 iw
[2024-11-29] MEDS ORDERED: NA CHLORIDE 0.9% 1,000 ML ONE ×2 (02:16→03:22)
[2024-11-29] MEDS ORDERED: KETOROLAC 10 MG TAB ONE (04:42)
[2024-11-29 09:54] VITALS: BP 130/72; TEMP 97.9; O2SAT 97
== END 2024-11-29 09:19 ==
LOC: ER 19:55
DX: R45.851 Suicidal ideations (principal); J44.1 Chronic obstructive pulmonary disease with (acute) exacerbation; F14.10 Cocaine abuse, uncomplicated; F32.A Depression, unspecified; Z11.52 Encounter for screening for COVID-19
CPT/HCPCS: 96365; 96361; 93005; 87040 ×2; 85025; 80048; 36415; 85610; 80076; 83605 ×3; 85730; 80307; 71045; 96375; 99285; 80143; 80179; 82077; 87428; J7613; J7644; J2919; J7030 ×3; J0696